=== PATIENT | female | born 1995 | race Caucasian/White ===

== ENCOUNTER 2022-01-31 15:21 | Observation (INO) | payer MEDICAID ==
[~2022-01-31] VITALS: Ht 149.9 cm; Wt 70.3 kg
== END 2022-01-31 23:25 | disposition home or self-care (01) ==
LOC: SPU 15:21
PROVIDERS: ADMIT Obstetrics & Gynecology; ATTEND Obstetrics & Gynecology
DX: O46.93 Antepartum hemorrhage, unspecified, third trimester (principal); Z3A.36 36 weeks gestation of pregnancy
CPT/HCPCS: 76819; 76805; 82962; G0378; 81002

== ENCOUNTER 2022-02-03 08:58 | Inpatient (IN) | payer MEDICAID ==
[~2022-02-03] VITALS: Ht 149.9 cm; Wt 70.8 kg
[2022-02-03] MEDS ORDERED: NALBUPHINE HCL 10 MG/ML AMP IM PRN (12:30)
[2022-02-03] MEDS ORDERED: NALBUPHINE HCL 10 MG/ML AMP IVP PRN (12:30)
[2022-02-03] MEDS ORDERED: OXYTOCIN/0.9 % SODIUM CHLORIDE 1,000 ML IV SCH (12:30)
[2022-02-03] MEDS ORDERED: DINOPROSTONE 10 MG SUPP VG ONE (12:30)
[2022-02-03] MEDS ORDERED: TERBUTALINE SULFATE 1 MG/ML VIAL SUBCUT ONE (12:30)
[2022-02-03 13:13] LABS: BASOPHILS % (AUTO) 0.1 % (0.0-2.0); EOSINOPHILS # (AUTO) 0.1 K/uL (0.0-0.4); EOSINOPHILS % (AUTO) 0.7 % (0.0-4.0); HEMATOCRIT 35.5 % (36-48); HEMOGLOBIN 12.2 g/dL (12.0-16.0); LYMPHOCYTES # (AUTO) 1.5 K/uL (1.0-5.5); MEAN CORPUSCULAR HEMOGLOBIN 30 pg (27-31); MEAN CORPUSCULAR HGB CONC 34 % (32-36); MEAN CORPUSCULAR VOLUME 86 fL (79.0-98.0); MONOCYTES # (AUTO) 0.4 K/uL (0.0-1.0); MONOCYTES % (AUTO) 5.8 % (1.7-9.3); NEUTROPHILS # (AUTO) 5.7 K/uL (1.8-7.7); NEUTROPHILS % (AUTO) 73.4 % (40.0-70.0); PLATELET COUNT (AUTO) 154 K/uL (130-430); RED BLOOD CELL COUNT(AUTO) 4.12 MIL/uL (4.2-6.2); WHITE BLOOD COUNT (AUTO) 7.7 K/uL (4.8-10.8)
[2022-02-03 13:47] VITALS: BP_SYST 116
[2022-02-04] MEDS ORDERED: LR 500 ML IV ONE
[2022-02-04] MEDS ORDERED: ePHEDrine sulfate 50 MG/ML VIAL IVP PRN
[2022-02-04] MEDS ORDERED: FENT2mCg/mL-ROPIVA0.2%/NS EPID 200 ML EP SCH
[2022-02-04] MEDS ORDERED: fentaNYL CITRATE/PF 100 MCG/2 ML AMP ONE ×2 (00:35→23:32)
[2022-02-04] MEDS ORDERED: ROPIVACAINE HCL/PF 0.2% 200 ML ONE ×2 (00:35→23:32)
[2022-02-04] MEDS ORDERED: CEFAZOLIN 2 GM IVPB PREMIX 50 ML IV ONE (08:30)
[2022-02-04] MEDS ORDERED: AMPICILLIN SODIUM 2 GM in NS 100 ML IV SCH (22:45)
[2022-02-04] MEDS ORDERED: AMPICILLIN SODIUM 2 GM VIAL ONE (22:54)
[2022-02-04] MEDS: LR 1,000 ML IV SCH (23:11)
[2022-02-05] MEDS ORDERED: GENTAMICIN 80 mg/50 mL NS 50 ML IV ONE (00:05)
[2022-02-05] MEDS ORDERED: LIGHT MINERAL OIL 10 ML VIAL MC ONE ×2 (00:32→09:52)
[2022-02-05] MEDS ORDERED: NALOXONE HCL 0.4 MG/ML AMP (NARCAN) ONE (00:32)
[2022-02-05] MEDS ORDERED: LIDOCAINE PF 1% 30ML(POUR BTL) INJ ONE ×2 (00:32→09:53)
[2022-02-05] MEDS ORDERED: AMPICILLIN SODIUM 1 GM in NS 50 ML IV SCH (05:00)
[2022-02-05] MEDS ORDERED: AMPICILLIN SODIUM 1 GM VIAL ONE (06:38)
[2022-02-05] MEDS: LR 1,000 ML IV SCH (07:40)
[2022-02-05] MEDS ORDERED: GENTAMICIN 80 mg/50 mL NS 50 ML IV SCH ×2 (08:00→23:00)
[2022-02-05] MEDS ORDERED: IBUPROFEN 600 MG TABLET ONE (11:55)
[2022-02-05] MEDS ORDERED: WITCH HAZEL LEAF 1 MED.PAD MED.PAD TP PRN (12:00)
[2022-02-05] MEDS ORDERED: DIPHTH,PERTUSS(ACELL),TET VAC 0.5 ML VIAL (Tdap) I.M. PRN (12:00)
[2022-02-05] MEDS ORDERED: OXYTOCIN/0.9 % SODIUM CHLORIDE 1,000 ML IV ONE (12:00)
[2022-02-05] MEDS ORDERED: IBUPROFEN 600 MG TABLET PO SCH (12:00)
[2022-02-05] MEDS ORDERED: DERMOPLAST SPRAY TP PRN (12:00)
[2022-02-06 06:55] LABS: BASOPHILS % (AUTO) 0.1 % (0.0-2.0); EOSINOPHILS # (AUTO) 0.1 K/uL (0.0-0.4); EOSINOPHILS % (AUTO) 1.3 % (0.0-4.0); HEMATOCRIT 27.8 % (36-48); HEMOGLOBIN 9.6 g/dL (12.0-16.0); LYMPHOCYTES # (AUTO) 1.8 K/uL (1.0-5.5); LYMPHOCYTES % (AUTO) 16.3 % (20.5-51.5); MEAN CORPUSCULAR HEMOGLOBIN 30 pg (27-31); MEAN CORPUSCULAR HGB CONC 35 % (32-36); MEAN CORPUSCULAR VOLUME 86 fL (79.0-98.0); MONOCYTES # (AUTO) 0.6 K/uL (0.0-1.0); MONOCYTES % (AUTO) 5.6 % (1.7-9.3); NEUTROPHILS # (AUTO) 8.3 K/uL (1.8-7.7); NEUTROPHILS % (AUTO) 76.7 % (40.0-70.0); PLATELET COUNT (AUTO) 123 K/uL (130-430); RED BLOOD CELL COUNT(AUTO) 3.22 MIL/uL (4.2-6.2); WHITE BLOOD COUNT (AUTO) 10.9 K/uL (4.8-10.8)
[2022-02-06] MEDS ORDERED: DOCUSATE SODIUM 100 MG CAPSULE PO SCH (09:00)
[2022-02-09 19:06] LABS: FTA-Ab (T PALLIDUM) Non Reactive (Non Reactive)
== END 2022-02-06 11:00 | disposition home or self-care (01) | DRG 560 ==
LOC: INTOOBSV 08:58 → OBSVTOIN 08:58 → SPU 08:58
PROVIDERS: ADMIT Obstetrics & Gynecology; ATTEND Obstetrics & Gynecology
PROC: 10D07Z6 Extraction of Products of Conception, Vacuum, Via Natural or Artificial Opening (ICD-10-PCS; principal; 2022-02-05)
PROC: 3E0R3BZ Introduction of Anesthetic Agent into Spinal Canal, Percutaneous Approach (ICD-10-PCS; 2022-02-05)
PROC: 00HU33Z Insertion of Infusion Device into Spinal Canal, Percutaneous Approach (ICD-10-PCS; 2022-02-05)
PROC: 3E0P7VZ Introduction of Hormone into Female Reproductive, Via Natural or Artificial Opening (ICD-10-PCS; 2022-02-05)
PROC: 0HQ9XZZ Repair Perineum Skin, External Approach (ICD-10-PCS; 2022-02-05)
DX: O24.429 Gestational diabetes mellitus in childbirth, unspecified control (principal); Z37.0 Single live birth; D62 Acute posthemorrhagic anemia; O34.40 Maternal care for other abnormalities of cervix, unspecified trimester; O69.81X0 Labor and delivery complicated by cord around neck, without compression, not applicable or unspecified; O70.0 First degree perineal laceration during delivery; O77.0 Labor and delivery complicated by meconium in amniotic fluid; Z20.822 Contact with and (suspected) exposure to COVID-19; Z3A.40 40 weeks gestation of pregnancy
CPT/HCPCS: 36415; 81002; 82962; 85025; 86592; 86780; 86886; 86900; 86901; 94760; J0290; J0690; J1580; J2001; J2300; J2310; J2590; J3010